=== PATIENT | female | born 1975 | race Caucasian/White ===

== ENCOUNTER 2017-06-24 08:00 | Inpatient (IN) | payer OTHER ==
[2017-06-21 17:39] VITALS: BMI 22.6
[2017-06-24] MEDS ORDERED: ENOXAPARIN NA (PORCINE) 40 MG/0.4 ML DISP.SYRIN SQ SCH (10:00)
--- NOTE | 2017-06-24 10:00 | HP ---
History & Physical Update - History History: No Change - Physical Physical: No Change - Assessment Assessment: No Change (41 yo with menorrhagia for TLH, bilateral salpingectomy, cystoscopy and all indicated procedures) - Plan Plan: No Change
[2017-06-24] MEDS ORDERED: ROCURONIUM BROMIDE 50 MG/5 ML VIAL ONE (10:21)
[2017-06-24] MEDS ORDERED: MIDAZOLAM HCL 2 MG/2 ML SINGLE DOSE VIAL ONE (10:21)
[2017-06-24] MEDS ORDERED: PROPOFOL 20 ML ONE (10:21)
[2017-06-24] MEDS ORDERED: ceFAZolin SODIUM 1 GM VIAL ONE (10:44)
[2017-06-24] MEDS ORDERED: ceFAZolin SODIUM 1 GM VIAL IVPB ONE (10:45)
[2017-06-24] MEDS ORDERED: DEXAMETHASONE SOD PHOSPHATE 4 MG/1 ML VIAL ONE ×2 (11:03→12:57)
[2017-06-24] MEDS ORDERED: HYDROmorphone HCL/PF 1 MG/ML VIAL (FOR PYXIS CHARGING ONLY) ONE ×2 (11:26→12:02)
[2017-06-24] MEDS ORDERED: ONDANSETRON 4 MG/2 ML VIAL IVPUSH PRN (12:41)
[2017-06-24] MEDS ORDERED: LACTATED RINGERS SOLUTION 1,000 ML IV SCH (12:45)
[2017-06-24] MEDS ORDERED: METHYLENE BLUE 1% 10 MG/1 ML VIAL NR ONE (13:00)
--- NOTE | 2017-06-24 13:21 | OP ---
Operative Note - Note: Operative Date: 06/24/17 Pre-Operative Diagnosis: menorrhagia, fibroid uterus Operation: total laparoscopic hysterectomy, bilateral salpingectomy, cystoscopy Findings: fibroid uterus, normal ovaries bialterally, normal appearing fallopian tubes,s/ p tubal ligation Post-Operative Diagnosis: Same as Pre-op Surgeon: Stella Chew Desk Clerks Supervisor: Pan Brooks Anesthesiologist/OLDER WORKER SPECIALIST: Salas Dodge Anesthesia: General Specimens Removed: uterus with cervix, fallopian tubes Estimated Blood Loss (mls): 20 Drains, Volume Out (mls): 300 Fluid Volume Replaced (mls): 1,500 Operative Report Dictated: Yes
[2017-06-24] MEDS ORDERED: oxyCODONE HCL 5 MG TABLET PO PRN ×2 (13:23)
[2017-06-24] MEDS ORDERED: IBUPROFEN 600 MG TABLET (FP) PO PRN (13:23)
[2017-06-24] MEDS: HYDROmorphone HCL CARPU-JECT 1 MG/1 ML DISP.SYRIN IVPUSH PRN ×4 (13:25→13:55)
[2017-06-24] MEDS ORDERED: HYDROmorphone HCL CARPU-JECT 2 MG/1 ML DISP.SYRIN ONE (13:34)
[2017-06-24] MEDS ORDERED: ONDANSETRON 4 MG/2 ML VIAL ONE (14:46)
[2017-06-24] MEDS ORDERED: PROMETHAZINE HCL 25 MG/1 ML VIAL IVPB ONE (16:54)
[2017-06-24] MEDS: IBUPROFEN 800 MG/8 ML IJ IVPB PRN (22:46)
[2017-06-25] MEDS: IBUPROFEN 800 MG/8 ML IJ IVPB PRN (04:55)
[2017-06-25 08:18] LABS: MCH 27.8 pg (25.7-33.7); MCHC 32.5 g/dl (32.0-36.0); MEAN CELL VOLUME 85.5 fl (80-96); MEAN PLT VOLUME 8.5 fl (7.5-11.1); PLATELET COUNT 251 K/MM3 (134-434); RDW 13.5 % (11.6-15.6); WHITE BLOOD COUNT 12.9 K/mm3 (4.0-10.0)
[2017-06-25 08:36] LABS: ANION GAP 6 (8-16); CALCIUM 8.6 mg/dL (8.5-10.1); CO2 26 mmol/L (21-32)
--- NOTE | 2017-06-25 08:39 | PN ---
Progress Note (SOAP) - Subjective History of Present Illness: Patient without acute complaints. Reports tolerating clears without nausea or vomiting. Nausea yesterday, resolved s/p phenergan. Ambulating without dizziness. Denies fevers or chills. Pain well controlled with oral pain medication. Passing flatus yesterday. Norton DC'd, voiding. - Current Medications Current Medications: Active Medications Enoxaparin Sodium (Lovenox -) 40 mg SQ DAILY [facility] Hydromorphone HCl (Dilaudid Injection -) 0.5 mg IVPUSH [id number] PRN PRN Reason: PAIN Stop: 06/27/17 12:42 Last Admin: 06/24/17 13:55 Dose: 0.5 mg Lactated Ringer's (Lactated Ringers Solution) 1,000 mls @ 75 mls/hr IV ASDIR SAMANTHA Last Admin: 06/24/17 15:00 Dose: 0 mls Ibuprofen (Motrin -) 600 mg PO Q6H PRN PRN Reason: FEVER Ibuprofen (Caldolor Injection -) 600 mg IVPB Q6H PRN PRN Reason: PAIN Last Admin: 06/25/17 04:55 Dose: 600 mg Oxycodone HCl (Roxicodone -) 5 mg PO Q4H PRN PRN Reason: PAIN Oxycodone HCl (Roxicodone -) 10 mg PO Q4H PRN PRN Reason: PAIN - Objective Vital Signs: Vital Signs Temperature 99.0 F 06/25/17 04:57 Pulse Rate 69 06/25/17 04:57 Respiratory Rate 20 06/25/17 04:57 Blood Pressure 90/50 06/25/17 04:57 O2 Sat by Pulse Oximetry (%) 98 06/24/17 21:00 Constitutional: Yes: Well Nourished, No Distress, Calm Cardiovascular: Yes: Regular Rate and Rhythm Respiratory: Yes: Regular, CTA Bilaterally Gastrointestinal: Yes: Soft, Hypoactive Bowel Sounds Peripheral Pulses WNL: Yes Edema: No Wound/Incision: Yes: Clean/Dry, Well Approximated Neurological: Yes: Alert, Oriented ...Motor Strength: Yes: WNL Psychiatric: Yes: Alert, Oriented Assessment/Plan 41 yo POD # 1 s/p TLH, bilateral salpingectomy, cystoscopy, doing well 1. Continue routine postoperative care. 2. ID - afebrile, will continue to monitor vital signs. 3. Cardiovascular - No acute issues 4. Pulmonary - Encourage incentive spirometer 5. Hematology - Hemoglobin / Hematocrit pending. Will continue to monitor vital signs of anemia Plan to start lovenox for thromboprophylaxis today 6. Urinary urine output adequate overnight; Bilateral ureteral jets noted. Creatinine pending Norton DCd in AM, voiding 7. Gastroinestinal no signs of ileus at this time Will advance diet 8. Gynecology will follow up pathology 9. Anticipate discharge home later today, pending able to ambulate, adequate pain control and urinating without issue.
[2017-06-25 09:47] LABS: CREATININE 0.6 mg/dL (0.55-1.02); GLUCOSE,RANDOM 76 mg/dL (74-106)
--- NOTE | 2017-06-25 11:28 | OP ---
DATE OF OPERATION: 06/24/2017 ATTENDING PHYSICIAN RESPONSIBLE FOR SIGNING REPORT: Stella Chew MD PREOPERATIVE DIAGNOSES: Menorrhagia, fibroid uterus. POSTOPERATIVE DIAGNOSES: Menorrhagia, fibroid uterus. SURGERY: Total laparoscopic hysterectomy, bilateral salpingectomy, and cystoscopy. SURGEON: Stella Chew MD JACK STRIP ASSEMBLER: Pan Brooks MD ANESTHESIA: General with Premavelida Dodge DO. ESTIMATED BLOOD LOSS: 20 mL INTRAVENOUS FLUID GIVEN: 1500 URINE OUTPUT: 300 mL INDICATION: Patient is a 41-year-old with history of fibroid uterus and menorrhagia. Offer for medical intervention. Desires primary surgical intervention. She was counseled regarding risks, benefits, alternatives, and complications of procedure including infection, bleeding, damage to surrounding organs such as bowel or bladder, ureters; need for repair. She expressed understanding, as brought to the operating room. DESCRIPTION OF PROCEDURE: When anesthesia was found to be adequate, the patient was prepped and draped in normal sterile fashion, placed in dorsal lithotomy position using Andrew stirrups. A speculum was placed in the patient's vagina. The patient's cervix was visualized, and a cold cup uterine manipulator was placed over the patient's cervix. Attention was brought to the abdominal cavity. A 5-mm incision was made with a knife, and a Veress needle was used to confirm intraabdominal placement using a water drop test. The abdomen was insufflated to an operating pressure of 18 mmHg of carbon dioxide gas. A 0-degree 5-mm scope was placed under direct visualization with a 5-mm trocar. Attention was brought to the right lower quadrant where a 5-mm port site was placed under direct visualization. On the left side of the abdomen, two 5-mm port sites were placed under direct visualization. Abdominal survey revealed bilateral fallopian tubes, an approximately 10-cm fibroid uterus, and normal-appearing ovaries. Attention was brought to the left round ligament. It was ligated using the Harmonic scalpel, and anterior lip of the broad ligament was taken down using the Harmonic electric scalpel. The bladder flap was created using the Harmonic electric scalpel. Good hemostasis was noted. The left utero-ovarian ligament was ligated using a LigaSure, and the uterine vessels were then ligated using LigaSure. Attention was brought to the right adnexa which appeared to be normal. A small 2-cm fibroid was noted in the round ligament. The utero-ovarian ligament was ligated using the LigaSure, and this was carried down to the level of the internal os which then the uterine vessels were ligated using LigaSure. Bladder flap continued to be made using the LigaSure. The colpotomy was performed using the Harmonic electric scalpel, and the uterus was then removed from the vagina. The colpotomy was closed using a 0 V-Loc suture in a running fashion. The specimen was removed and sent to Pathology. Attention was brought to the right fallopian tube which was removed and sent to Pathology using the Harmonic electric scalpel. Attention was brought to the left fallopian tube which was also removed using the Harmonic electric scalpel. Pneumoperitoneum was released. A cystoscopy was performed. Bilateral urethral jets were noted. The peritoneum was then re-insufflated, and good hemostasis was noted. No pooling of blood was noted. All instruments were removed from the patient's abdomen. Pneumoperitoneum was released, and the skin was closed using 4-0 Vicryl and Dermabond. The patient was awoken from anesthesia. The patient tolerated the procedure well. Estimated blood loss was 20 mL. Patient was awoken from anesthesia and brought to recovery room in stable condition. Tash [id number] MTDD
[2017-06-25 12:22] VITALS: BP 93/58; PULSE 75; TEMP 97.9
--- NOTE | 2017-06-25 14:13 | PATH ---
Surgical Pathology Report Patient Name: CHRISSIE RICHARD [facility]. Rec. 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 FALLOPIAN TUBE, RIGHT, SALPINGECTOMY: BENIGN FIMBRIATED FALLOPIAN TUBE WITH FOCAL FIBRINOHEMORRHAGIC ADHESIONS. B. FALLOPIAN TUBE, LEFT SALPINGECTOMY: BENIGN FIMBRIATED FALLOPIAN TUBE WITH FOCAL FIBRINOHEMORRHAGIC ADHESIONS. C. UTERUS CERVIX, TOTAL LAPAROSCOPIC HYSTERECTOMY: CERVIX: CHRONIC CERVICITIS. ENDOMETRIUM: PROLIFERATIVE. MYOMETRIUM: FOCAL ADENOMYOSIS, LEIOMYOMA (2.0 CM). UTERINE SEROSA: WITHOUT SIGNIFICANT PATHOLOGIC CHANGES. Electronically Signed [place] Artis M.D. Gross Description A. Received in formalin, labeled "right fallopian tube" is a 4 cm in length fimbriated portion of walker-red fallopian tube. Sectioning reveals a pinpoint lumen. Area Coordinator sections submitted one cassette. B. Received in formalin, labeled "left fallopian tube" is a 3.5 cm in length fimbriated portion of walker-red fallopian tube. Sectioning reveals a pinpoint lumen. Area Coordinator sections submitted one cassette. C. Received in formalin, labeled "uterus and cervix" is a 142 g, 10 x 6.5 x 4.2 cm uterus with no attached adnexa. The uterine serosa is walker-pink and smooth. The ectocervix is walker-white and glistening. Endocervical canal is lined by trabeculated walker-pink endocervical mucosa. The endometrial cavity is 4 cm in length and is lined by walker-red endometrium 0.1 cm in thickness. The myometrium is walker-pink and trabeculated. A single 2.0 cm in diameter intramural nodule with walker-white whorled cut surface is present. Area Coordinator sections are submitted as follows: Cassette #1 -anterior cervix, cassette #2 -posterior cervix, cassettes #3 and 4 anterior endomyometrium and serosa, cassettes #-5 and 6-posterior endomyometrium and serosa, cassette #7 -intramural nodule. AF/06/24/2017 final/06/24/2017
== END 2017-06-25 13:25 | disposition home or self-care (01) | DRG 519 ==
LOC: EDSTATUS 08:00 → JSAMEDAYSX 08:25 → J3W 15:43
PROVIDERS: ADMIT Obstetrics & Gynecology; ATTEND Obstetrics & Gynecology
PROC: 0UT74ZZ Resection of Bilateral Fallopian Tubes, Percutaneous Endoscopic Approach (ICD-10-PCS; 2017-06-24)
PROC: 0UT94ZZ Resection of Uterus, Percutaneous Endoscopic Approach (ICD-10-PCS; principal; 2017-06-24 10:00)
DX: D25.9 Leiomyoma of uterus, unspecified (principal); N92.0 Excessive and frequent menstruation with regular cycle
CPT/HCPCS: 36415; 80048; 84703; 85027; 86850; 86900; 86901; 88305-TC; 88307-TC; 94010; 94760